=== PATIENT | male | born 1985 | race Two or more races ===

== ENCOUNTER 2025-06-03 00:11 | Emergency (ER) | payer BC ==
[~2025-06-03] VITALS: Ht 180.3 cm; Wt 95.3 kg
[2025-06-03 02:50] VITALS: BP 129/78; O2SAT 99
== END 2025-06-03 02:52 | disposition home or self-care (01) ==
LOC: ER 00:11
DX: A04.8 Other specified bacterial intestinal infections (principal)

== ENCOUNTER → 2025-06-05 | Emergency (ER) | payer BC | END | disposition left against medical advice (07) | LOC: ER 12:48 | DX: Z53.21 Procedure and treatment not carried out due to patient leaving prior to being seen by health care provider (principal) ==

== ENCOUNTER 2025-06-19 19:55 | Emergency (ER) | payer BC ==
[~2025-06-19] VITALS: Ht 180.3 cm; Wt 95.3 kg
[2025-06-19 23:13] LABS: BASO % 1.4 % (0.1-1.2); EOS # 0.18 (0.04-0.54); EOS % 3.5 % (0.7-7.0); LYMPH # 2.55 (1.18-3.74); LYMPH % 50.0 % (19.3-53.1); MEAN PLATELET VOLUME 8.70 fl (9.4-12.4); MONO # 0.57 (0.24-0.82); MONO % 11.2 % (4.7-12.5); NEUT # 1.72 (1.56-6.13); NEUT % 33.7 % (34.0-71.1); RED CELL DISTRIBUTION WIDTH 12.9 % (11.6-14.4)
[2025-06-19 23:48] LABS: ALT/SGPT 26.0 U/L (12-78); AST/SGOT 29.0 U/L (15-37); BILIRUBIN TOTAL 0.22 mg/dL (0.3-1.2); BUN CREA RATIO 14.0 (7.0-25.0); CREATININE SERUM 1.32 mg/dL (0.70-1.30); GFR 60.07; GLOBULINA 3.5 G/DL (2.4-3.5); GLUCOSE FASTING 105.0 mg/dL (65-100); OSMOLALITY SERUM 285.0 MOSM/KG (275-295)
[2025-06-20] MEDS ORDERED: TRAMADOL HCL 50 MG TABLET PO ONE (00:15)
[2025-06-20] MEDS ORDERED: ORPHENADRINE CITRATE 30 MG/ML AMPUL IM ONE (00:15)
[2025-06-20] MEDS ORDERED: DICLOFENAC SODI50 MG PO (00:33)
[2025-06-20] MEDS ORDERED: NORFLEX100MG PO (00:33)
[2025-06-20] MEDS ORDERED: ORPHENADRINE CITRATE 30 MG/ML AMPUL ONE (00:38)
== END 2025-06-20 01:18 | disposition home or self-care (01) ==
LOC: ER 19:55
PROVIDERS: Preventive Medicine Public Health & General Preventive Medicine
DX: M94.0 Chondrocostal junction syndrome [Tietze] (principal)